=== PATIENT | female | born 1990 | race Caucasian/White ===

== ENCOUNTER 2022-07-03 06:07 | Emergency (ER) | payer BC, SELFPAY ==
--- NOTE | 2022-07-03 06:15 | XRR_ITS ---
PROCEDURE INFORMATION: Exam: XR Chest Exam date and time: 07/03/2022 7:18 AM Age: 39 years old Clinical indication: Cough and dyspnea; Additional info: Dyspnea/cough TECHNIQUE: Imaging protocol: Radiologic exam of the chest. Views: 1 view. COMPARISON: No relevant prior studies available. FINDINGS: Lungs: Unremarkable. No consolidation. Pleural spaces: Unremarkable. No pleural effusion. No pneumothorax. Heart/Mediastinum: Unremarkable. No cardiomegaly. Bones/joints: Unremarkable. XR/XR chest 1V portable [id number] IMPRESSION: No acute findings.
--- NOTE | 2022-07-03 06:15 | ECG_ITS ---
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 Measurements Intervals [place] Rate: 102 P: 76 [place]: 145 QRS: 68 QRSD: 86 T: 73 QT: 326 QTc: 426 Interpretive Statements SINUS TACHYCARDIA No previous ECG available for comparison Electronically Signed On 07-03-2022 16:29:52 CDT by Franck Adrian M.D. [id number]
--- NOTE | 2022-07-03 06:16 | ED_ITS ---
HPI - General Adult General: Chief complaint: Chest Pain Stated complaint: Heavy chest, SOB, N/V Time Seen by Provider: 07/03/22 06:11 Source: patient Mode of arrival: ambulatory History of Present Illness: 39-year-old female who presents emergency room complaining of chest and epigastric left upper quadrant pain with nausea began this morning. She has not noticed anything that exacerbates or relieves it she said she tried various positions with no improvement. She has had some nausea and vomiting and shortness of breath associated with that. No radiation to the neck or back. No hematemesis coffee-ground emesis no dysuria urgency or frequency. She has no history of any chronic respiratory problems no history of any DVT PE or coronary artery disease. Patient is not diabetic. Onset (ago): hour(s) Location: chest Severity: mild Quality: aching Pain Consistency: constant Relieving factors: none Exacerbating factors: none Associated symptoms: Reports chest pain and cough; Deny confusion, diaphoresis, decreased appetite, dyspnea, fevers/chills, headache(s), malaise, nausea, rash, palpitations, seizures, short of breath, syncope, vomiting or weakness Treatments prior to arrival: none Review of Systems Const: Denies: fever(s), chills, malaise or diaphoresis ENMT: Denies: throat pain, ear or mastoid pain, nasal discharge or nasal congestion Card: Reports: chest pain; Denies: palpitations or syncope Resp: Denies: dyspnea GI: Denies: nausea or vomiting : Denies: flank pain, difficulty voiding, dysuria, urinary frequency or urinary urgency Skin/Breast: Denies: rash Neuro: Denies: headache(s) or confusion PFS ED PFSH: Social History (Updated 07/03/22 @ 06:27 by Carlos Webb DO) Smoking and tobacco status: current every day smoker Physical Exam Const: GENERAL APPEARANCE: cooperative and comfortable O RIENTATION/CONSCIOUSNESS: Yes awake, Yes oriented to person, Yes oriented to place and Yes oriented to time HENMT: COMMON NORMALS: normocephalic, atraumatic and hearing grossly normal bilaterally HEAD & SCALP: normocephalic and atraumatic Resp: COMMON NORMALS: No retractions, No use of accessory muscles and clear to auscultation bilaterally EFFORT & INSPECTION: Yes tachypneic AUSCULTATION: clear to auscultation bilaterally Cardio: COMMON NORMALS: regular rate, regular rhythm and No murmurs present (Cardio) RATE: regular rate RHYTHM: regular rhythm GI: COMMON NORMALS: Soft to palpation and No hepatosplenomegaly present AUSCULTATION: Yes normoactive bowel sounds PALPATION: Yes Soft to palpation, No Tenderness to palpation present (GI), No Guarding due to palpation present (G I) and Yes No hepatosplenomegaly present Extremity: COMMON NORMALS: normal to inspection, capillary refill normal, no clubbing, cyanosis or edema, no calf tenderness and no pedal edema Neuro: SENSORIUM/ORIENTATION: Yes oriented to person, Yes oriented to place and Yes oriented to time Skin: COMMON NORMALS: no rashes or lesions noted GENERAL SKIN EXAM: no rashes or lesions noted Course Vital Signs: Vital signs: Vital Signs Temperature 98.3 F 07/03/22 06:20 Pulse Rate 79 07/03/22 09:08 Respiratory Rate 16 07/03/22 06:50 Blood Pressure 132/82 07/03/22 09:08 Pulse Oximetry 96 07/03/22 09:08 Oxygen Delivery Me thod Room Air 07/03/22 09:08 [facility] - General Adult Medical Decision Making Labs and imaging reviewed discussed with the patient. EKG shows no acute changes troponins negative. White count and liver functions are normal. On the CT there is a question of thickening of the gallbladder wall discussed Dr. Acevedo he recommended ultrasound. Ultrasound shows mild dilation of common bile duct a calculus gallbladder with some mild thickening. Dr. Acevedo felt patient had a calculus cholecystitis. There is no evidence of stones and while there is some bile duct dilation relatively minimal and laboratory studies are normal. After discussion we decided not to go forward with an MRCP. I discussed Dr. Preston as well he recommends starting on Augmentin 875 twice daily for 10 days also started on pantoprazole avoid foods that might irritate the gallbladder we will set her up for an outpatient HIDA scan and follow-up with general surgery. Medical Records I reviewed the patient's medical records. Lab Data I reviewed the patient's lab results. 07/03/22 06:15 07/03/22 06:15 Radiology Impressions Chest X-Ray 07/03/22 06:15 IMPRESSION: No acute findings. Abdomen/Pelvis CT 07/03/22 07:48 IMPRESSION: 1. Diffuse gallbladder wall thickening with edema. No visualized choledocholithiasis. This can be further evaluated with ultrasound. 2. Hepatomegaly. Otherwise normal noncontrast liver. 3. Normal appendix in the RIGHT lower quadrant. 4. Multifollicular ovaries bilaterally. 2.5 cm RIGHT ovarian cyst. Trace free fluid in the pelvis. 5. A few sigmoid diverticuli. 6. Small LEFT renal cyst. 7. No other acute findings Notified Carlos Webb DO at 07/03/2022 8:42 AM. Gallbladder Ultrasound 07/03/22 08:37 IMPRESSION: 1. Diffuse gallbladder wall thickening measuring 3.9 mm with a small amount of surrounding pericholecystic fluid and edema. No visualized cholelithiasis. Recommend correlation for the acalculus cholecystitis. 2. Mild dilatation common bile duct measuring 7.5 mm. This can be further evaluated with MRCP. 3. Mild hepatomegaly. 4. No hydronephrosis in RIGHT kidney. Laboratory Results WBC 17.2 10^3/uL (4.0-10.0) H 07/03/22 06:15 RBC 5.10 10^6/uL (4.1-5.3) 07/03/22 06:15 Hgb 14.2 g/dL (11.5-15.3) 07/03/22 06:15 Hct 43.5 % (37.0-47.0) 07/03/22 06:15 MCV 85.3 fl (81-99) 07/03/22 06:15 MCH 27.8 pg (28.0-34.0) L 07/03/22 06:15 MCHC 32.6 g/dL (30.0-36.0) 07/03/22 06:15 RDW 12.5 % (12.1-15.1) 07/03/22 06:15 Plt Count 498 10^3/cmm (130-400) H 07/03/22 06:15 MPV 9.3 fL (7.4-10.4) 07/03/22 06:15 Neut % (Auto) 61.0 % 07/03/22 06:15 Lymph % (Auto) 28.5 % 07/03/22 06:15 [place] % (Auto) 6.5 % 07/03/22 06:15 Eos % (Auto) 3.2 % 07/03/22 06:15 Baso % (Auto) 0.5 % 07/03/22 06:15 Neut # (Auto) 10.50 10^3/uL (1.8-7.7) H 07/03/22 06:15 Lymph # (Auto) 4.9 10^3/uL (0.8-4.8) H 07/03/22 06:15 [place] # (Auto) 1.1 10^3/uL (0.2-0.9) H 07/03/22 06:15 Eos # (Auto) 0.6 10^3/uL (0.0-0.8) 07/03/22 06:15 Baso # (Auto) 0.1 10^3/uL (0.0-0.1) 07/03/22 06:15 Nucleated RBC % (auto) 0 % 07/03/22 06:15 Nucleated RBCs # 0.0 /100WBC 07/03/22 06:15 Specimen Type Arterial 07/03/22 06:54 Sample Site Radial, right 07/03/22 06:54 ABG pH 7.45 (7.35-7.45) 07/03/22 06:54 ABG pCO2 30.7 mmHg (35-45) L 07/03/22 06:54 ABG pO2 102.0 mmHg (80.0-100.0) H 07/03/22 06:54 ABG HCO3 21.4 mmol/L (22-26) L 07/03/22 06:54 ABG O2 Saturation 99.3 07/03/22 06:54 ABG Base Excess -1.7 mmol/L (-2.0-2.0) 07/03/22 06:54 [place]ario Test Pos 07/03/22 06:54 A-a O2 Gradient 1.1 mmHg (5-10) L 07/03/22 06:54 Hematocrit 40.1 % (37-47) 07/03/22 06:54 Hgb O2 Saturation 97.0 % (95-100) 07/03/22 06:54 Carboxyhemoglobin 1.8 %THgb (0.4-20.1) 07/03/22 06:54 Methemoglobin 0.4 % (0.4-1.5) 07/03/22 06:54 Total Hemoglobin 13.1 g/dL (12-16) 07/03/22 06:54 Sodium 138.0 mmol/L (131-143) 07/03/22 06:54 Potassium 3.5 mmol/L (3.5-5.0) 07/03/22 06:54 Glucose 109.0 mg/dL (70-115) 07/03/22 06:54 Ionized Calcium 1.2 mmol/L (1.1-1.4) 07/03/22 06:54 O2 Delivery Device None 07/03/22 06:54 FiO2 21.0 % 07/03/22 06:54 Marketing Proposal Coordinator ID [place] 07/03/22 06:54 Sodium 137 mmol/L (136-145) 07/03/22 06:15 Potassium 4.2 mmol/L (3.5-5.1) 07/03/22 06:15 Chloride 101 mmol/L (98-107) 07/03/22 06:15 Carbon Dioxide 23 mmol/L (22-29) 07/03/22 06:15 Anion Gap 17.2 (5-19) 07/03/22 06:15 BUN 10 mg/dL (6-20) 07/03/22 06:15 Creatinine 0.7 mg/dL (0.5-0.9) 07/03/22 06:15 GFR Calculation 93.6 mL/min (90-130) 07/03/22 06:15 Glucose 99 mg/dL (65-115) 07/03/22 06:15 Calculated Osmolality 283 mOsm/kg (285-295) L 07/03/22 06:15 Calcium 9.2 mg/dL (8.5-10.5) 07/03/22 06:15 Total Bilirubin 0.5 mg/dL (0.15-1.2) 07/03/22 06:15 AST 30 U/L (0-32) 07/03/22 06:15 ALT 29 U/L (0-33) 07/03/22 06:15 Alkaline Phosphatase 102 U/L (35-105) 07/03/22 06:15 Troponin T Baseline 6 ng/L (0-10) 07/03/22 06:17 Troponin T 120 Minute 6.00 ng/L (0-10) 07/03/22 08:26 Delta Troponin T 0 ABS# (0-10) 07/03/22 08:26 Total Protein 7.6 g/dL (6.6-8.7) 07/03/22 06:15 Albumin 4.2 g/dL (3.5-5.2) 07/03/22 06:15 Globulin 3.4 g/dL (1.3-4.6) 07/03/22 06:15 Lipase 19 U/L (13-60) 07/03/22 06:17 Urine Color Yellow (Yellow) 07/03/22 07:20 Urine Appearance Clear (CLEAR) 07/03/22 07:20 Urine pH 5 (5-7) 07/03/22 07:20 Ur Specific [place] 1.020 (1.005-1.030) 07/03/22 07:20 Urine Protein Neg (Negative) 07/03/22 07:20 Urine Glucose (UA) Norm (Normal) 07/03/22 07:20 Urine Ketones Negative (Negative) 07/03/22 07:20 Urine Blood Neg (Negative) 07/03/22 07:20 Urine Nitrate Negative (Negative) 07/03/22 07:20 Urine Bilirubin Neg (Negative) 07/03/22 07:20 Urine Urobilinogen Norm mg/dL (Negative) 07/03/22 07:20 Ur Leukocyte Esterase Trace (Negative) H 07/03/22 07:20 Urine RBC None /hpf (0-2) 07/03/22 07:20 Urine WBC 5-10 /hpf (0-5) H 07/03/22 07:20 Ur Squamous Epith Cells Rare /hpf (0-5) 07/03/22 07:20 Amorphous Sediment Not Reportable 07/03/22 07:20 Urine Bacteria Trace /hpf (NONE) 07/03/22 07:20 Discharge Plan Discharge Patient Disposition: Home Clinical Impression: Acalculous cholecystitis Condition: Stable Prescriptions: New hydrocodone-acetaminophen 5-325 mg tablet 1 tab PO Q6H PRN (Reason: pain) Qty: 10 0RF ondansetron HCl 4 mg tablet 4 mg PO Q6H PRN (Reason: nausea and vomiting) Qty: 20 0RF amoxicillin-pot clavulanate 875-125 mg tablet 1 tab PO BID Qty: 20 0RF pantoprazole 40 mg tablet,delayed release (DR/EC) 40 mg PO BID 14 Days Qty: 28 0RF Discharge Orders: Discharge ED (Routine); Ordered 07/03/22 Ordered By: Carlos Webb Referrals: Gunner Gold MD [Primary Care Provider] - Discharge Diet: As Directed Discharge Activity: Increase activity as tolerated Patient Instructions: Opioid Safety, Pain Management Activity Restrictions/Additional Instructions: You were seen today for abdominal pain. You appear to have mild a calculus cholecystitis. We discussed case and reviewed the imaging with the general surgeon he recommends that we start you on Augmentin twice a day for 10 days. We will set up an outpatient HIDA scan and have you follow-up with a general surgeon in his office. If you have worsening of symptoms return. Avoid greasy foods fatty foods fried foods tomato-based products and citrus foods as those can irritate gallbladder problems. Additionally we started you on a medication for your stomach pantoprazole 40 mg twice daily. Coding Level of Care Code ED Escort Patients for Arlet Walker
[2022-07-03 06:20] VITALS: BP 136/93; PULSE 103; RESP 28; TEMP 36.8; O2SAT 100; BMI 34.4
[2022-07-03 06:29] LABS: Basophils # 0.1 10^3/uL (0.0-0.1); Basophils % 0.5 %; Eosinophils # 0.6 10^3/uL (0.0-0.8); Eosinophils % 3.2 %; Hematocrit 43.5 % (37.0-47.0); Hemoglobin 14.2 g/dL (11.5-15.3); Lymphocytes # 4.9 10^3/uL (0.8-4.8); Lymphocytes % 28.5 %; Mean Corpuscular HGB Conc 32.6 g/dL (30.0-36.0); Mean Corpuscular Hemoglobin 27.8 pg (28.0-34.0); Mean Corpuscular Volume 85.3 fl (81-99); Mean Platelet Volume 9.3 fL (7.4-10.4); Monocytes # 1.1 10^3/uL (0.2-0.9); Monocytes % 6.5 %; Nucleated Red Blood Cells % 0 %; Platelet Count 498 10^3/cmm (130-400); Red Cell Distribution Width 12.5 % (12.1-15.1); White Blood Count 17.2 10^3/uL (4.0-10.0)
[2022-07-03] MEDS: sodium chloride 0.9% 1,000 ML 999 ML IV (06:34)
[2022-07-03] MEDS: LORazepam 2 mg/mL INJ 1 mL IVP (06:39)
[2022-07-03] MEDS: ondansetron 2 mg/ML SDV 2 mL 4 MG IVP (06:39)
[2022-07-03 06:50] VITALS: BP 136/93; PULSE 94; RESP 16; O2SAT 100
[2022-07-03 06:58] LABS: Alanine Aminotransferase 29 U/L (0-33); Albumin Level 4.2 g/dL (3.5-5.2); Alkaline Phosphatase 102 U/L (35-105); Blood Urea Nitrogen 10 mg/dL (6-20); Calcium 9.2 mg/dL (8.5-10.5); Carbon Dioxide 23 mmol/L (22-29); Chloride 101 mmol/L (98-107); Globulin 3.4 g/dL (1.3-4.6); Glomerular Filtration Rate 93.6 mL/min (90-130); Glucose 99 mg/dL (65-115); Osmolality Calculated 283 mOsm/kg (285-295); Sodium 137 mmol/L (136-145); Total Bilirubin 0.5 mg/dL (0.15-1.2); Total Protein 7.6 g/dL (6.6-8.7)
[2022-07-03 06:59] LABS: Troponin(5th) Baseline 6 ng/L (0-10)
[2022-07-03 07:06] LABS: Anion Gap 17.2 (5-19); Aspartate Amino Transferase 30 U/L (0-32); Potassium 4.2 mmol/L (3.5-5.1)
[2022-07-03 07:06] LABS: ABG PCO2 30.7 mmHg (35-45); ABG PH Result 7.45 (7.35-7.45); Alveolar-Arterial Oxygen Gradi 1.1 mmHg (5-10); Arterial Blood Gas Hematocrit 40.1 % (37-47); Base Excess ABG -1.7 mmol/L (-2.0-2.0); Blood Gas Allen Test Pos; Blood Gas Operator Identificat WALCI; Blood Gas Sample Site Radial, right; Blood Gas Sample Type Arterial; Carboxyhemoglobin 1.8 %THgb (0.4-20.1); HCO3 ABG 21.4 mmol/L (22-26); Ionized Calcium Level - ABG 1.2 mmol/L (1.1-1.4); Methemoglobin 0.4 % (0.4-1.5); Oxygen Saturation ABG 99.3; Potassium Level - ABG 3.5 mmol/L (3.5-5.0); Total Hemoglobin 13.1 g/dL (12-16)
[2022-07-03 07:26] LABS: Lipase 19 U/L (13-60)
[2022-07-03 07:26] LABS: Slide Review Slide Review Perform
[2022-07-03 07:28] VITALS: BP 145/93; PULSE 89; O2SAT 97
--- NOTE | 2022-07-03 07:48 | CT_ITS ---
WS: [id number] CT ABDOMEN PELVIS TECHNIQUE: Noncontrast CT of the abdomen and pelvis with coronal and sagittal reformatted images. CLINICAL INFORMATION: Abdominal pain COMPARISON: None. DLP: 972.[address] scans at [facility] use at least one of these dose optimization techniques: automated e xposure control; mA and/or kV adjustment per patient size (includes targeted exams where dose is matc hed to clinical indication); or iterative reconstruction. FINDINGS: Lung bases are well aerated. Hepatomegaly. Otherwise normal noncontrast liver. Normal noncontrast spl een. Normal GE junction. Adrenal glands are normal. Small LEFT renal cyst. Noncontrast pancreas appea rs normal. Mild diffuse gallbladder wall thickening. This can be further evaluated with ultrasound. Adrenal Glands are normal. No hydronephrosis in either kidney. No obstructing renal or ureteral calcu li. A few sigmoid diverticuli. No evidence of acute diverticulitis. Mild sigmoid colon constipation. Norm al appendix in the RIGHT lower quadrant. Multifollicular ovaries bilaterally. RIGHT ovarian cyst measuring 2.5 cm. Trace fluid in the pelvis. Pelvic phleboliths. CT/CT abdomen pelvis wo con [id number] IMPRESSION: 1. Diffuse gallbladder wall thickening with edema. No visualized choledocholit hiasis. This can be further evaluated with ultrasound. 2. Hepatomegaly. Otherwise normal noncontrast liver. 3. Normal appendix in the RIGHT lower quadrant. 4. Multifollicular ovaries bilaterally. 2.5 cm RIGHT ovarian cyst. Trace free fluid in the pelvis. 5. A few sigmoid diverticuli. 6. Small LEFT renal cyst. 7. No other acute findings Notified Carlos Webb DO at 07/03/2022 8:42 AM.
[2022-07-03 08:01] LABS: Add Urine Culture? No; Add Urine Microscopic? YES; Bacteria Urine TRACE /hpf; Bilirubin Urine Neg (Negative); Blood Urine Neg (Negative); Glucose Urine UA Norm (Normal); Ketones Urine Negative (Negative); Leukocyte Esterase Urine Trace (Negative); Nitrate Urine Negative (Negative); Protein Urine Neg (Negative); Squamous Epithelial Cell Urine RARE /hpf (0-5); Urine Appearance Clear (CLEAR); Urine Color Yellow (Yellow); Urobilinogen Urine Norm (Negative); pH Urine 5 (5-7)
--- NOTE | 2022-07-03 08:37 | US_ITS ---
WS: [id number] ULTRASOUND ABDOMEN LIMITED CLINICAL INFORMATION: abd pain/ abnormal GB on CT COMPARISON: None. FINDINGS: Liver Size: Mild hepatomegaly. Craniocaudal length: 16.9 cm. Echogenicity: Normal. Surface nodularity: None. Mass (size and location): None. Bile ducts Intrahepatic ducts: Normal. Common bile duct diameter: 0.8 cm. Gallbladder Gallbladder wall thickening with edema Gallstones: None. Gallbladder sludge: None. Gallbladder wall thickening: Present Pericholecystic fluid: Present Sonographic Layne sign: Absent. Pancreas Normal as visualized. Right kidney: Normal. Hydronephrosis: None. Size: 10.4 cm x 5.5 cm x 4.7 cm. Abdominal aorta and IVC Visualized portions are normal. Ascites: None. US/US gall bladder [id number] IMPRESSION: 1. Diffuse gallbladder wall thickening measuring 3.9 mm with a small amount of surrounding pericholecystic fluid and edema. No visualized cholelithiasis. Rec ommend correlation for the acalculus cholecystitis. 2. Mild dilatation common bile duct measuring 7.5 mm. This can be further eval uated with MRCP. 3. Mild hepatomegaly. 4. No hydronephrosis in RIGHT kidney.
[2022-07-03] MEDS: morphine 4 mg/mL SDV 1 mL IVP (09:06)
[2022-07-03 09:08] VITALS: BP 132/82; PULSE 79; O2SAT 96
[2022-07-03 09:11] LABS: Troponin 5 2HR Delta 0 ABS# (0-10)
--- NOTE | 2022-07-03 09:22 | ECG_ITS ---
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 Measurements Intervals [place] Rate: 85 P: 38 [place]: 144 QRS: 42 QRSD: 85 T: 1 QT: 360 QTc: 429 Interpretive Statements SINUS RHYTHM WITH SINUS ARRHYTHMIA NONSPECIFIC T-WAVE ABNORMALITY Compared to ECG 07/03/2022 06:18:57 T-wave abnormality now present Sinus tachycardia no longer present Electronically Signed On 07-03-2022 16:35:46 CDT by Franck Adrian M.D. [id number]
--- NOTE | 2022-07-03 14:19 | PC.SOCIAL ---
Addendum entered by Corrie Andrade 07/19/22 10:24: client solutions manager received the following message from centralized scheduling regarding follow up: Dr. Webb put in an order for a NM Hepa for patient Ira Mcwilliams end of last month. This is a self-pay patient and Anders the self-pay counselor hasn?t been able to contact the patient. The order will be inactivated. Aurora Fraire Candy Spreader Helper Centralized Scheduling Addendum entered by Corrie Andrade 07/18/22 10:46: client solutions manager received the following message from the general surgery clinic regarding follow up appointment: Contact with patient has been unsuccessful 07/18 Original Note: Orders for HIDA scan faxed to centralized scheduling. Message to Dr. Sosa office for follow-up appointment.
== END 2022-07-03 10:21 | disposition home or self-care (01) ==
PROVIDERS: Emergency Provider Family Medicine; PCP Family Medicine
DX: K81.9 Cholecystitis, unspecified (principal); F17.210 Nicotine dependence, cigarettes, uncomplicated
CPT/HCPCS: 36600; 71045; 74176; 76705; 80051; 80053; 81001; 82330; 82805; 83690; 84484; 85025; 93005; 96361; 96374; 96375; 99285; J2060; J2270; J2405; J7030

== ENCOUNTER 2024-08-30 12:22 | Emergency (ER) | payer BC, MEDICAID, SELFPAY ==
--- OUTSIDE RECORDS SUMMARY | 2021-07-21 05:56 | XMS_ITS | Continuity of Care Document ---
Author Organization [facility] Address [id number] [address] Phone Care Team Providers Care Director [employer] Name Role Phone Trent Pretty DDS Unavailable Unavailabl e Advance Directives Directive Yes / No Effective Date File Name No Information Encounters Encounter Description Practice Location Reason(s) For Visit Diagnoses Date Provider Providers Copied on Encounter [facility], [id number], [id number], [place] tel:[phone] [facility] No Information Maria De Jesus Newman. [address] [place] [address], [address], [place]. tel:[phone] Family History Family Member Type Diagnosis Age At Onset No Information Payers Payer name Insurance type Covered alliance party ID Authoriza tion(s) No Information Social History Type Description Quantity Date Captured Comments Sex Female Smoking Status No Information Chief Complaint And Reason For Visit No Information Reason For Referral Reason For Referral No Information History Of Present Illness Encounter Date Complaint History Of Prese nt Illness No Information Functional Status Date Functional Assessmen t No Information Instructions Date Instruction Additional Infor mation No Information Assessments Type Assessment Date No Information Patient Care Teams Name Effective Dates (start - stop) Status Members No Information
--- OUTSIDE RECORDS SUMMARY | 2024-08-30 12:29 | XMS_ITS | Continuity of Care Document ---
Author Organization [facility] Manny Gamez, [facility] ([facility]) Address [address] [place] [address] Care Team Providers Care Lokie Engineer Name Role Phone KAREEM GOLD Primary Care Provider Assessment No assessment recorded. Plan of Treatment Reminders Order Date Submit Date Provider Last Modified By Organization Details Last Modified Time Details Appointments RECHECK 10 2024 08:50A M Kareem Gold MD Not available Not available Not available Lab None recorded. Referral None recorded. Procedures None recorded. Surgeries None recorded. Imaging None recorded. Medication Orders hydrocort isone 2.5 % topical cream with perineal applicato r 2024 025 [facility], [address], [place], [address], 08/28/2024 14:19:29 Patient TargetsNo targets recorded. Patient InstructionsNo instructions recorded. Reason for Referral None Reported. Problems Name Problem SNOMED Code Status Onset Date Resolution Date Notes Provider Name and Address Organization Details Recorded Time Thyroid nodule 364894793 [facility] 2023 [facility] Anterior cervical lymphadenop athy 077571472 Completed 202307/17/2024 [facility] Smoker 43528364 Active 2023 [facility] Problem Notes None recorded. Procedures Surgical History Date Name Laterality Status Provider Name and Address Organization Details Recorded Time procedure on foot completed Norma Jaurez [facility], Manny 05/17/2023 11:18:35 Appendectomy completed KYAWWILLARD [facility] 04/07/2024 13:02:53 Imaging Results None recorded. Procedure Notes None recorded. Medical Equipment None Reported. Allergies No known drug allergies Medications Name Sig Start Date Stop Date Status Note LastModified by Organization Details LastModified Time Miralax 17 gram/dose oral powder Take 17 g every day by oral route. 10/31 completed Not Available Not Available Not Available Colace 100 mg capsule Take 1 capsule every day by oral route. 10/31 completed Not Available Not Available Not Available hydrocodo ne 5 mg-acetam inophen 325 mg tablet TAKE 1 TABLET BY MOUTH EVERY 6 HOURS NEEDED FOR PAIN 11/10 completed Not Available Not Available Not Available ondansetr on HCl 4 mg tablet TAKE 1 TABLET BY MOUTH EVERY 6 HOURS NEEDED FOR NAUSEA AND VOMITING 11/10 completed Not Available Not Available Not Available ketorolac 30 mg/mL (1 mL) injection solution Inject 1 mL every 6 hours by intramus cular route for 1 day. 05/16 completed Not Available Not Available Not Available hydrocort isone 2.5 % topical cream with perineal applicato r APPLY A THIN LAYER TO THE AFFECTED AREA(S) BY TOPICAL ROUTE 2-4 TIMESDAI LY 2024 active Not Available Not Available Not Avai lable pantopraz ole 40 mg tablet,de layed release TAKE 1 TABLET BY MOUTH TWICE DAILY 11/10 completed Not Available Not Available Not Available amoxicill in 250 mg capsule TAKE 2 CAPSULES BY MOUTH THREE TIMES DAILY FOR 7 DAYS 10/31 completed Not Available Not Available Not Available ondansetr on 4 mg disintegr ating tablet Place 1 tablet 3 times a day by translin gual route as needed for 10 days. 05/16 completed Not Available Not Available Not Available amoxicill in 875 mg-potass ium clavulana te 125 mg tablet TAKE 1 TABLET BY MOUTH TWICE DAILY 10/31 completed Not Available Not Available Not Available oxycodone 5 mg tablet TAKE 1 TABLET BY MOUTH EVERY 6 HOURS NEEDED FOR PAIN 10/31 completed Not Available Not Available Not Available escitalop rosa 10 mg tablet Take 1 tablet every day by oral route for 30 days. 2024 active Not Available Not Available Not Avai lable meloxicam QD 11/10 completed Recorded 10/22/19 22 3:16PM by Kareem Gold MD, Office Visit; Refill Quantity : 30; Tablet; Not Available Not Available Not Available oxycodone 10/31 completed Not Available Not Available Not Available varenicli ne tartrate 1 mg tablet TAKE 1 TABLET BY MOUTH TWICE DAILY AFTER USING STARTER PACK 07/17 completed Not Available Not Available Not Available Chantix Starting Month Box 0.5 mg (11)-1 mg (42) tablets in dose pack Take 1 startr pk every day by oral route. 07/17 completed Not Available Not Available Not Available Nurtec ODT 75 mg disintegr ating tablet Take 1 tablet every 72 hours by oral route for 3 days. 05/16 completed Not Available Not Available Not Available Voltaren Arthritis Pain 1 % topical gel APPLY 2 GRAMS TO THE AFFECTED AREA(S) BY TOPICAL ROUTE 4 TIMES PER DAY 05/16 completed Not Available Not Available Not Available Vitals Date Recorded Body height Body mass index (BMI) Body weight Oxygen saturation Oxygen saturation in Arterial blood by Pulse oximetry Heart rate Respiratory rate Body temperature Systolic And Diastolic Provider Name and Address Organization Details Last Updated DateTime 5 167.64 cm 42 kg/m2 367678. 02 g 98 % 98 % 86 /min 16 /min 98.6 [degF] 130/70 mm[Hg] Taniya Nicole [facility] 5 13:11:18 Social History Question Answer Notes LastModified by Organizat ion Details LastModified Time Tobacco Smoking Status Former Smoker MOLLY tran, [facility], L.LRolandaCRolanda 04/07/2024 13:02:34 When Did You Quit Smoking? 1-5yearssinc elastcigaret te 03/2024 [email or web address] Information not available 04/07/2024 What Was The Date Of Your Most Recent Tobacco Screening? 08/28/2024 [email or web address] Information not available 08/28/2024 What Is Your Relationship Status? Information not available 05/17/2023 Sex: Unknown Functional Status Question Answer Note LastModified by Organizat ion Details LastModified Time Do you use any illicit or recreational drugs? No Information not available 05/17/2023 What is your level of alcohol consumption? None Information not available 05/17/2023 Are you currently employed? No Information not available 05/17/2023 Are you able to care for yourself? Yes Information not available 05/17/2023 Mental Status None recorded. Family History Nothing Reported. Medical History No medical history recorded. Gynecological HistoryNo gynecological history recorded. Obstetrics History GPAL:G 0 P 0 0 0 0 Immunizations Vaccine Type Date Status Note Provider Nam e and Address Organization Details Recorded Time MMR 5 completed MOLLY tran [facility], L[facility]LR[facility]andaCRolanda 06/14/2023 13:15:55 MMR 7 completed MOLLY tran [facility], L.LRolandaCR[facility]anda 06/14/2023 13:15:55 polio, unspecified formulation 5 completed TREBA NEUSIRISHANDSUSAN tran [facility], L.LRolandaCRolanda 06/14/2023 13:15:55 polio, unspecified formulation 7 completed MOLLY tran [facility], L.L.CR[facility]anda 06/14/2023 13:15:55 DTP-Hib 5 completed MOLLY tran [facility], L.LRolandaCRolanda 06/14/2023 13:15:55 HPV, quadrivalent 3 completed MOLLY tran, [facility], LRolandaLColt 06/14/2023 13:15:55 Tdap 2 completed [facility] 02:33:30 Past Encounters Encounter ID Performer Location Encounter Start Date Encounter Closed Date Diagnosis/Indication Diagnosis SNOMED-CT Code Diagnosis ICD10 Code Diagnosis Note [id number] IRINA HARRIS [facility] ([facility]) [address] [place] [address] 08/28/2024 13:03:56 08/28/2024 14:22:22 Painless rectal bleeding 592251375 K62.5 Will treat for possible internal hemorrhoid s. Patient states that she has labs to be done today which includes a CBC. Will have patient keep follow up appt with Dr Gold to discuss medication s including lexapro and lab results. RTC with any new or worsening symptoms. Health Concerns Section Related Observation LastModified by Organization Detai ls LastModified Time None Recorded Concern Status LastModified by Organization Details LastModified Time None Recorded Payers Encounter Date Sequence Insurance Name Policy Number Policy Blanco Covered Member ID Blanco Member ID Guarantor Name 08/28/2024 1 [employer] [place] - [place]MO) [id number] Ira Mcwilliams [id number] Ira Mcwilliams Notes Date Note Type Note Provider Name and Address Organization Details Recorded Time 08/28/2024 text/html walk in patient is here today for blood in her stool that started 2 days ago without pain. Patient is not sure if it is from her medication. Denies any history of hemorrhoids. Denies any abd pain or other times of bleeding. Patient states that the lexapro that was recently started is also giving her issues with sexual enjoyment and would like to stop this. IRINA HARRIS [address] [place], [address], [facility], Manny 08/28/2024 17:22:48 OBGyn Episode No OBEpisode recorded.
--- OUTSIDE RECORDS SUMMARY | 2024-08-30 12:29 | XMS_ITS | Data Portability ---
Author Organization [facility], [facility] Address [address] [address] Care Team Providers Care Ophthalmologist Name Role Phone KAREEM BLACKWELL Primary Care Provider Assessment Encounter Date Assessment Date Assessment LastModified by Organization Details LastModified Time 03/11/2024 03/11/2024 3 view xray- no fx, joint effusion present- independently viewed by nh [email or web address] Not available 03/12/2024 13:32:35 04/07/2024 04/07/2024 I have encouraged her to gradually increase activity of her knee. We will see how her knee does over time. Will consider orthopedic referral as needed. Her insurance would not cover physical therapy, so that is not an option. [email or web address] Not available 04/30/2024 07:57:49 Plan of Treatment Reminders Order Date Submit Date Provider Last Modified By Organization Details Last Modified Time Details Appointments RECHEC K 10 2024 08:50A M Kareem Blackwell MD Not available Not available Not available Lab thyrot ropin, QN, serum or plasma 2024 025 [email or web address] [facility], [address], [address], [place], [address], 08/05/2024 18:43:32 CBC 2024 025 [email or web address] [facility], [address], [address], [place], [address], 08/05/2024 18:43:44 CMP, serum or plasma [address] [facility], [address], [facility] 1, [place], [address], 08/05/2024 18:44:06 Referral mental health counse griffin referr al 2024 025 Not available 08/08/2024 17:30:26 physic al therap ist referr al 2024 025 [facility], [address], [place], [address], 04/07/2024 10:04:29 Procedures None record ed. Surgeries None record ed. Imaging XR, knee, 3 view [address] (Scheduling Orders), [address], [place], [address], 03/14/2024 06:41:04 Medication Orders hydroc ortiso ne 2.5 % topica l cream with perine al applic ator 2024 025 [facility], [address], [place], [address], 08/28/2024 14:19:29 escita lopram 10 mg tablet 2024 025 [facility], [address], [place], [address], 07/17/2024 10:08:17 Chanti x Starti ng Month Box 0.5 mg (11)-1 mg (42) tablet s in dose pack 2024 025 [facility], [address], [place], [address], 07/17/2024 10:44:59 Chanti x Starti ng Month Box 0.5 mg (11)-1 mg (42) tablet s in dose pack 2023 024 [facility] [address], [place], [address], 07/17/2024 09:41:38 Patient TargetsNo targets recorded. Patient InstructionsNo instructions recorded. Reason for Referral Physical Therapist Referral for Pain of left knee joint Referring Physician: Ashley Seay, Family Medicine, Encounter Date: 03/11/2024 Mental Health Counselor Refe rral for Mixed anxiety and depressive disorder Referring Physician: Kareem Blackwell, Family Medicine, Encounter Date: 07/17/2024 Results Created Date Observation Date Name Description Value Unit Range Abnormal Flag Note LastModifiedBy Organization Detail LastModifiedTime 08/29/1908/28/2024 CBC WBC 11.1 x10 4.0-10 .5 high Not Available [facility] [address] [facility] 1, [place], [address], 08/28/2024 14:22:14 08/29/19 25 08/28/2024 CBC RBC 4.44 x10 3.50-5 .50 Not Available [facility] [address] [facility] 1, [place], [address], 08/28/2024 14:22:14 08/29/19 25 08/28/2024 CBC HGB 12.7 g/dL 12.0-1 6.0 Not Available [facility] [address] [facility] 1, [place], [address], 08/28/2024 14:22:14 08/29/19 25 08/28/2024 CBC HCT 38.6 % 37.0-4 7.0 Not Available [facility] [address] [facility] 1, [place], [address], 08/28/2024 14:22:14 08/29/19 25 08/28/2024 CBC MCV 87.0 fL 80.0-9 9.9 Not Available [facility] [address] [facility] 1, [place], [address], 08/28/2024 14:22:14 08/29/19 25 08/28/2024 CBC MCH 28.6 pg 27.0-3 2.0 Not Available [facility] [address] [facility] 1, [place], [address], 08/28/2024 14:22:14 08/29/19 25 08/28/2024 CBC MCHC 32.8 g/dL 32.0-3 6.0 Not Available [facility] [address] [facility] 1, [place], [address], 08/28/2024 14:22:14 08/29/19 25 08/28/2024 CBC RDW 14.0 % 11.5-1 4.5 Not Available [facility] [address] [facility] 1, [place], [address], 08/28/2024 14:22:14 08/29/1908/28/2024 CBC plt 343.3 x10 140.0- 451.0 Not Available [facility] [address] [facility] 1, [place], [address], 08/28/2024 14:22:14 08/29/19 25 08/28/2024 CBC lymphocytes % 35.5 % 20.0-5 0.0 Not Available [facility] [address] [facility] 1, [place], [address], 08/28/2024 14:22:14 08/29/19 25 08/28/2024 CBC granulcytes % 55.4 % 30.0-7 0.0 Not Available [facility] [address] [facility] 1, [place], [address], 08/28/2024 14:22:14 08/29/19 25 08/28/2024 CBC monocytes % 4.1 % 2.0-16 .0 Not Available [facility] [address] [facility] 1, [place], [address], 08/28/2024 14:22:14 08/29/19 25 08/28/2024 CBC granulcytes# 6.2 x10 Not Jyothi ilable [facility] [address] [facility] 1, [place], [address], 08/28/2024 14:22:14 08/29/19 25 08/28/2024 CBC lymphocytes # 3.9 x10 Not Available [facility] [address] [facility] 1, [place], [address], 08/28/2024 14:22:14 08/29/19 25 08/28/2024 CBC monocytes # 0.5 x10 Not Avai lable [facility] [address] [facility] 1, [place], [address], 08/28/2024 14:22:14 08/29/19 25 08/28/2024 TSH TSH 2.10 uIU/m L 0.49-3 .82 Not Available [facility] [address] [facility] 1, [place], [address], 08/28/2024 15:22:29 08/29/19 25 08/28/2024 CMP (FEMA LE) glucose 117.0 mg/dL 60.0-9 9.0 high Not Available [facility] [address] [facility] 1, [place], [address], 08/28/2024 15:47:48 08/29/19 25 08/28/2024 CMP (FEMA LE) BUN (blood urea nitrogen) 14.0 mg/dL 10.0-2 6.0 Not Available [facility] [address] [facility] 1, [place], [address], 08/28/2024 15:47:48 08/29/19 25 08/28/2024 CMP (FEMA LE) creatinine (serum) 0.6 mg/dL 0.4-1. 5 Not Available [facility] [address] [facility] 1, [place], [address], 08/28/2024 15:47:48 08/29/19 25 08/28/2024 CMP (FEMA LE) BUN/creatini ne ratio 23.33 ratio Not Available [facility] [address] [facility], [place], [address], 08/28/2024 15:47:48 08/29/19 25 08/28/2024 CMP (FEMA LE) eGFR calculated 122.4 Not Available [facility] [address] [facility], [place], [address], 08/28/2024 15:47:48 08/29/19 25 08/28/2024 CMP (FEMA LE) total protein 7.3 g/dL 6.0-8. 5 Not Available [facility] [address] [facility] 1, [place], [address], 08/28/2024 15:47:48 08/29/19 25 08/28/2024 CMP (FEMA LE) total bilirubin 0.4 mg/dL 0.2-1. 3 Not Available [facility] [address] [facility] 1, [place], [address], 08/28/2024 15:47:48 08/29/19 25 08/28/2024 CMP (FEMA LE) albumin 4.2 g/dL 3.5-5. 5 Not Available [facility] [address] [facility] 1, [place], [address], 08/28/2024 15:47:48 08/29/19 25 08/28/2024 CMP (FEMA LE) globulin 3.1 calc Not Available [facility] [address] [facility] 1, [place], [address], 08/28/2024 15:47:48 08/29/19 25 08/28/2024 CMP (FEMA LE) AST (SGOT) 41.0 U/L 0.0-46 .0 Not Available [facility] [address] [place] [facility], [place], [address], 08/28/2024 15:47:48 08/29/19 25 08/28/2024 CMP (FEMA LE) altv (SGPT) 37.0 U/L 13.0-6 9.0 normal Not Available [facility] [address] [place] [facility], [place], [address], 08/28/2024 15:47:48 08/29/19 25 08/28/2024 CMP (FEMA LE) A/G ratio 1.4 ratio Not Available [facility] [address] [facility] 1, [place], [address], 08/28/2024 15:47:48 08/29/19 25 08/28/2024 CMP (FEMA LE) ALP phos 75.0 U/L 30.0-1 40.0 normal Not Available [facility] [address] [place] [facility], [place], [address], 08/28/2024 15:47:48 08/29/19 25 08/28/2024 CMP (FEMA LE) calcium 9.2 mg/dL 8.4-10 .5 Not Available [facility] [address] [facility] 1, [place], [address], 08/28/2024 15:47:48 08/29/19 25 08/28/2024 CMP (FEMA LE) sodium 138.0 mmol/ L 136.0- 145.0 Not Available [facility] [address], [place], [address], 08/28/2024 15:47:48 08/29/19 25 08/28/2024 CMP (FEMA LE) potassium 4.2 mmol/ L 3.5-5. 1 Not Available [facility] [address] [facility] 1, [place], [address], 08/28/2024 15:47:48 08/29/19 25 08/28/2024 CMP (FEMA LE) chloride 103.0 mmol/ L 98.0-1 10.0 normal Not Available [facility] [address] [facility] 1, [place], [address], 08/28/2024 15:47:48 08/29/19 25 08/28/2024 CMP (FEMA LE) C02 29.0 mmol/ L 22.0-3 1.0 Not Available [facility] [address] [facility] 1, [place], [address], 08/28/2024 15:47:48 08/29/19 25 08/28/2024 CMP (FEMA LE) anion gap 6.0 calc Not Available [facility] [address] [facility] 1, [place], [address], 08/28/2024 15:47:48 08/29/19 25 08/28/2024 CMP (FEMA LE) osmolality 286.5 calc Not Available [facility] [address] [facility] [address] 1, [place], [address], 08/28/2024 15:47:48 03/11/19 25 03/11/2024 XR, knee, 3 view No observ ation record ed. [email or web address] [facility] [address] [facility] [address], [place], [address], 03/12/2024 07:33:31 Result Notes None recorded. Problems Name Problem SNOMED Code Status Onset Date Resolution Date Notes Provider Name and Address Organization Details Recorded Time Thyroid nodule 405558956 Active 2023 MOLLY Marks [facility], Manny 09:30:01 Anterior cervical lymphadenop athy 156136576 Completed 202307/17/2024 MOLLY LINDER [facility], Manny 09:29:51 Smoker 49826751 Active 2023 MOLLY LINDER [facility], [place]anny 09:29:56 Problem Notes None recorded. Procedures Surgical History Date Name Laterality Status Provider Name and Address Organization Details Recorded Time procedure on foot completed Norma Juarez [facility], [place]anny 05/17/2023 11:18:35 Appendectomy completed MOLLY ZAVALETA [facility], LRolandaLColt 04/07/2024 13:02:53 Imaging Results None recorded. Procedure [...] completed Recorded 10/22/19 22 3:16PM by Kareem Blackwell MD, Office Visit; Refill Quantity : 30; [...] Details Last Updated DateTime 5 167.64 cm 41.2 kg/m2 871526. 05 g 99 % 99 % 86 /min 16 /min 98.2 [degF] 134/80 mm[Hg] Taniya Nicole [facility], LRolandaLColt 5 12:00:57 Date Recorded Body height Body mass index (BMI) Body weight Oxygen saturation Oxygen saturation in Arterial blood by Pulse oximetry Heart rate Respiratory rate Body temperature Systolic And Diastolic Provider Name and Address Organization Details Last Updated DateTime 5 167.64 cm 42 kg/m2 056897. 12 g 97 % 97 % 97 /min 20 /min 97.9 [degF] 136/80 mm[Hg] MOLLY MARTINEZ [facility], LRolandaLColt 5 13:12:42 Date Recorded Body height Body mass index (BMI) Body weight Oxygen saturation Oxygen saturation in Arterial blood by Pulse oximetry Heart rate Respiratory rate Body temperature Systolic And Diastolic Provider Name and Address Organization Details Last Updated DateTime 5 167.64 cm 41 kg/m2 841962. 16 g 99 % 99 % 76 /min 18 /min 97.6 [degF] 128/76 mm[Hg] MOLLY MARTINEZ [facility] LRolandaLColt 5 09:50:17 Date Recorded Body height Body mass index (BMI) Body weight Oxygen saturation Oxygen saturation in Arterial blood by Pulse oximetry Heart rate Respiratory rate Body temperature Systolic And Diastolic Provider Name and Address Organization Details Last Updated DateTime 5 167.64 cm 42 kg/m2 027223. 02 g 98 % 98 % 86 /min 16 /min 98.6 [degF] 130/70 mm[Hg] Taniya Nicole [facility] LRolandaLColt 5 13:11:18 Date Recorded Body height Body mass index (BMI) Body weight Oxygen saturation Oxygen saturation in Arterial blood by Pulse oximetry Heart rate Systolic And Diastolic Provider Name and Address Organization Details Last Updated DateTime 4 167.64 cm 39.8 kg/m2 280534. 52 g 99 % 99 % 80 /min 124/72 mm[Hg] MOLLY LINDER [facility], L.L.CRolanda 4 09:54:59 Social History Question Answer Notes LastModified by Organizat ion Details LastModified Time Tobacco Smoking Status Former Smoker MOLLY tran [facility], L.L.CRolanda 04/07/2024 13:02:34 When Did You Quit Smoking? 1-5yearssinc elastcigaret te 03/2024 [email or web address] Information not available 04/07/2024 What Was The Date Of Your Most Recent Tobacco Screening? 08/28/2024 [email or web address] Information not available 08/28/2024 What Is Your Relationship Status? Information not available 05/17/2023 Sex: Unknown Functional Status Question Answer Note LastModified by Whereizat ion Details LastModified Time Do you use [...] Organization Details Recorded Time MMR 5 completed OMLLY tran [facility], L.L.CRolanda 06/14/2023 13:15:55 MMR 7 completed MOLLY tran [facility], L.L.CRolanda 06/14/2023 13:15:55 polio, unspecified formulation 5 completed MOLLY tran [facility], L.FaustoC. 06/14/2023 13:15:55 polio, unspecified formulation 7 completed TREBA BINHWANDER marc, [facility], LRolandaLRolandaC. 06/14/2023 13:15:55 DTP-Hib 5 completed TREBA BINHWANDER marc, [facility], RenatoC. 06/14/2023 13:15:55 HPV, quadrivalent 3 completed TREBA BINHWANDER marc, [facility], LRolandaLRolandaC. 06/14/2023 13:15:55 Tdap 2 completed Not Available [facility] 09/09/2022 02:33:30 Past Encounters Encounter ID Performer Location Encounter Start Date Encounter Closed Date Diagnosis/Indication Diagnosis SNOMED-CT Code Diagnosis ICD10 Code Diagnosis Note [id number] VIOLETTE MAIER [facility] ([facility]) [address] [place] [phone] 11/10/2022 09:54:57 11/10/2022 12:47:29 Pain in right foot 0645936249 51291 M79.671 Start voltaren gel four times daily as needed. Encouraged to roll frozen water bottle twice daily on foot. If not improving in 1-2 weeks, will consider referral to podiatry or x-ray. Patient agrees to plan of care. [id number] VIOLETTE MAIER [facility] ([facility]) [address] [place] [phone] 01/05/2023 16:13:23 01/05/2023 17:02:37 Migraine 16525927 G43.909 Ketorolac IM given in clinic today. Patients drove her. Patient was given Nurtec to start tomorrow if no improvemen t. Can start ondansetro n PRN tonight for vomiting and nausea. Discussed with patient that if pain becomes worse or any visual changes occurs, she needs to go to ED. Patient verbalizes understand ing. [id number] Mick Keys MD [facility] ([facility]) [address] [place] [id number] 05/17/2023 11:11:36 05/17/2023 11:47:29 Thyroid nodule 300474876 E04.1 Possible thyroid nodule noted. Given some of her symptoms I would recommend we check thyroid function today. Will obtain ultrasound for further evaluation of the nodule of concern. Anterior c ervical lymphadenopathy 305430763 R59.0 Supple lymphadeno bailee noted. Given night sweats we will go ahead and do evaluation with labs. Recommend follow-up with PCP [id number] Mick Keys MD [facility] ([facility]) [address] [place] [id number] 05/23/2023 11:03:21 05/24/2023 12:05:30 [id number] Kareem Blackwell MD [facility] ([facility]) [address] [place] [address] [id number] 06/14/2023 12:56:16 06/14/2023 14:12:55 Thyroid nodule 451014203 E04.1 Pain of le ft hip joint 5597898037 17532 M25.552 Oropharyng eal dysphagia 60861040 R13.12 [id number] Kareem Blackwell MD [facility] ([facility]) [address] [place] [id number] 06/27/2023 11:55:05 06/27/2023 14:08:36 Abdominal pain 47054596 R10.9 Postoperative visit 1836 32501 Z48.89 [id number] Kareem Blackwell MD [facility] ([facility]) [address] [place] [address] [id number] 11/01/2023 09:40:51 11/01/2023 10:31:26 Smoker 93961041 F17.590 [id number] IRINA SEQUEIRA [facility] ([facility]) [address] [place] [id number] 03/11/2024 11:23:39 03/14/2024 06:41:03 Pain of left knee joint 5844285047 23760 M25.562 Effusion o f joint of left knee 3241307371 61332 M25.462 Discussed otc knee support/br stephy for pt to purchase and start wearing daily.Ice pack applicatio n for 10 minutes every 2 hours while awake.Ibup rofen 400mg PO BID with food for next 1 week.Injur y occurred 2 months ago, xray completed today, will send referral for PT.Pt will f/u with her PCP for evaluation of her response to PT in 1 month. [id number] Kareem Blackwell MD [facility] ([facility]) [address] [place] [address] [phone] 04/07/2024 12:48:29 04/07/2024 16:26:38 Pain of left knee joint 3667375398 09737 M25.562 Smoker 07920974 F17.618 [id number] Kareem Blackwell MD [facility] ([facility]) [address] [place] [id number] 5 07/17/2024 09:15:16 07/17/2024 10:37:15 Thyroid nodule 846763791 E04.1 Malaise and fatigue 2717 80663 R53.81 R53.83 Mixed anxi ety and depressive disorder 926155563 F41.9 F32.A [id number] IRINA HARRIS [facility] ([facility]) [address] [place] [address] [id number] 08/28/2024 13:03:56 08/28/2024 14:22:22 Painless rectal bleeding 648183883 K62.5 Will treat for possible internal hemorrhoid s. Patient states that she has labs to be done today which includes a CBC. Will have patient keep follow up appt with Dr Blackwell to discuss medication s including lexapro and lab results. RTC with any new or worsening symptoms. Health Concerns Section Related Observation LastModified by Organization Detai ls LastModified Time None Recorded Concern Status LastModified by Organization Details LastModified Time None Recorded Advance Directives Directive None Recorded Payers Insurance Date Sequence Insurance Name Policy Number Policy Blanco Covered Member ID Blanco Member ID Guarantor Name 08/28/2024 [place] [facility] (INSTITUTIONAL ) [id number] Ira Horton [id number] Ira Mcwilliams 08/28/2024 1 [employer] [place] - [place]) [id number] Ira Mcwilliams [id number] Ira Mcwilliams Notes Date Note Type Note Provider Name and Address Organization Details Recorded Time 11/01/2023 text/html Pt would like to get something to help her stop smoking, she has tried on her own but gets very irritated and is hateful to others around her. Kareem Blackwell MD [address] [place] [address], [phone], [facility] 11/01/2023 10:30:40 03/11/2024 text/html walk in patientpatient is here today for left knee pain and swelling that started 2 months ago.pt was standing and twisted to grab something on her right side. Afterwards she noticed swelling to the left knee and cannot cross her legs with the left leg. has been alternating ice/heat. IRINA SEQUEIRA [address] [place] [address], [phone], [facility] 03/12/2024 13:33:57 04/07/2024 text/html Follow up from w alk in-Pt went to [place] on 03[place], for knee pain, she had turned and her left knee popped and twisted. Pt had X rays and a PT referral. Pt states her insurance did not cover PT so she looked up exercises for knee injuries and has been doing then at home. Pt states her knee is feeling a little better. She states she feels like her left knee and leg is weaker and she has edema in her left leg. If she is not wearing her knee brace her knee feels like its going to give out. Pt states she feels super stiff when she gets up in the AM Kareem Blackwell MD [address] [place] [address], [phone], [facility] 04/30/2024 07:57:56 07/17/2024 text/html Pt states she is tired all, she just feels like something is wrong, Pt states her eyes are swollen and watery. Pt is thirsty all the time. Pt states she has been getting black lines on her finger nails that come and go.Pts Insurance would not cover PT, her knees are swollen the left knee is worse. Pts feet have a burning sensations the right foot is worse.Pt would like to have another baby but she keeps gaining weight, the only thing she craves is sweets and when she was her teeth hurt, pt states when she has a period her teeth hurt also..Pt is having more anxiety and depression and would like to talk about getting on something, she feels paranoid all the time, she has a bunch of what if, she will not even take the trash out if it is dark because she has a lot of what ifs. Kareem Blackwell MD [address] [place] [address], [phone], [facility] 07/17/2024 10:13:29 08/28/2024 text/html walk in patient is here [...] would like to stop this. IRINA HARRIS [address] [place] [address], [phone], [facility] 08/28/2024 17:22:48 OBGyn Episode No OBEpisode recorded.
[2024-08-30 12:31] VITALS: BP 160/83; PULSE 93; RESP 14; TEMP 36.5; O2SAT 99; BMI 40.7
--- NOTE | 2024-08-30 13:32 | ED_ITS ---
HPI - GI Bleed 2 General: Chief complaint: GI Bleed Stated complaint: gi bleed Time Seen by Provider: 08/30/24 13:04 History of Present Illness: 34-year-old female presents emergency ro om complaining of painless rectal bleeding. She only has slight bleeding with bowel movements. She has not had any obstruction no abdominal pain bloating. No recent rectal trauma no previous surgeries. She has been evaluated in the past for colitis but does not have any cramping or mucousy stools. No recent antibiotics. Associated symptoms: Denies abdominal pain, chills, fever(s), nausea, rash or vomiting Related Data Home Medications ?Medication ?Instructions ?Recorded ?Confirmed buprenorphine HCl 2 mg sublingual 4 mg sublingual REMEDIOS Y 08/30/24 08/30/24 tablet buprenorphine HCl 8 mg sublingual 8 mg sublingual BID 08/30/24 08/30/24 tablet Previous Rx's ?Medication ?Instructions ?Recorded hydrocortisone acetate 25 mg 25 mg HI TID 2 weeks #100 ea 08/30/24 rectal suppository (Anucort-HC) Allergies Allergy/AdvReac Type Severity Reaction Status Date / Time No Known Allergies Allergy Verified 08/30/24 12:37 Review of Systems 2 Const: Denies: fever(s) or chills Card: Denies: chest pain Resp: Denies: dyspnea GI: Reports: hematochezia; Denies: abdominal pain, nausea, vomiting, hematemesis or coffee ground emesis : Denies: dysuria, urinary frequency or urinary urgency Musc: Denies: neck pain or back pain Skin/Breast: Denies: rash PFSH ED 2 PFSH: Social History Smoking and tobacco/nicotine status: current every day tobacco/nicotine user Physical Exam 2 Const: COMMON NORMALS: no acute distress GENERAL APPEARANCE: cooperative and comfortable ORIENTATION/CONSCIOUSNESS: Yes awake, Yes oriented to person, Yes oriented to place and Yes oriented to time HENMT: COMMON NORMALS: normocephalic, atraumatic and hearing grossly normal bilaterally HEAD & SCALP: normocephalic and atraumatic Resp: COMMON NORMALS: normal respiratory effort, No retractions, No use of accessory muscles and clear to auscultation bilaterally AUSCULTATION: clear to auscultation bilaterally Cardio: COMMON NORMALS: regular rate, regular rhythm and No murmurs present (Cardio) RATE: regular rate RHYTHM: regular rhythm GI: COMMON NORMALS: Soft to palpation and No hepatosplenomegaly present A USCULTATION: Yes normoactive bowel sounds PALPATION: Yes Soft to palpation, No Tenderness to palpation present (GI), No Guarding due to palpation present (GI) and Yes No hepatosplenomegaly present OTHER: Rectal exam with nurse present hemorrhoidal tags noted no fissure. Scant bright red blood at the rectal verge Extremity: COMMON NORMALS: normal to inspection, capillary refill normal, no clubbing, cyanosis or edema, no calf tenderness and no pedal edema Neuro: SENSORIUM/ORIENTATION: Yes oriented to person, Yes oriented to place and Yes oriented to time Skin: COMMON NORMALS: no rashes or lesions noted GENERAL SKIN EXAM: no rashes or lesions noted Course 2 Vital Signs: Vital signs: Vital Signs Temperature 97.7 F 08/30/24 12:31 Pulse Rate 88 08/30/24 15:21 Respiratory Rate 16 08/30/24 15:21 Blood Pressure 109/80 08/30/24 15:21 Pulse Oximetry 100 08/30/24 15:21 Oxygen Delivery Me thod Room Air 08/30/24 12:31 MDM - GI Bleed Medical Decision Making Discharge patient home discharge with Anusol HC suppository set up to see general surgery for consideration of endoscopy return if has further problems she does have some mild anemia however her MCV is low suspect her anemia is chronic Lab Data 08/30/24 13:55 08/30/24 13:55 Laboratory Results WBC 11.06 10^3/uL (3.29-11.43) 08/30/24 13:55 RBC 3.71 10^6/uL (3.85-5.65) L 08/30/24 13:55 Hgb 10.40 g/dL (11.27-16.99) L 08/30/24 13:55 Hct 31.5 % (36-47) L 08/30/24 13:55 MCV 84.9 fl (85-98) L 08/30/24 13:55 MCH 28.0 pg (27-33) 08/30/24 13:55 MCHC 33.0 g/dL (30-55) 08/30/24 13:55 RDW 13.5 % (12.1-15.1) 08/30/24 13:55 Plt Count 363 10^3/cmm (157-399) 08/30/24 13:55 MPV 9.5 fL (7.4-10.4) 08/30/24 13:55 Lymph % (Auto) Not Reportable 08/30/24 13:55 [place] % (Auto) Not Reportable 08/30/24 13:55 Lymph # (Auto) Not Reportable 08/30/24 13:55 [place] # (Auto) Not Reportable 08/30/24 13:55 Total Counted 100 (0-100) 08/30/24 13:55 Atypical Lymphs % 9.0 % (0-5) H 08/30/24 13:55 Absolute Neutrophils 6.0 10^3/cmm (1.4-6.5) 08/30/24 13:55 Segmented Neutrophils 52 % 08/30/24 13:55 Band Neutrophils 2.0 % 08/30/24 13:55 Absolute Lymphocytes 4.6 10^3/cmm (1.2-3.4) H 08/30/24 13:55 Lymphocytes (Manual) 33 % 08/30/24 13:55 Monocytes (Manual) 0.0 % 08/30/24 13:55 Absolute Monocytes 0.0 10^3/cmm (0.1-0.6) L 08/30/24 13:55 Eosinophils (Manual) 4 % 08/30/24 13:55 Absolute Eosinophils 0.4 10^3/cmm (0.0-0.7) 08/30/24 13:55 Basophils (Manual) 0.0 % 08/30/24 13:55 Absolute Basophils 0.0 10^3/cmm (0.0-0.2) 08/30/24 13:55 Platelet Estimate Increased (Normal) H 08/30/24 13:55 Sodium 138 mmol/L (136-145) 08/30/24 13:55 Potassium 4.0 mmol/L (3.5-5.1) 08/30/24 13:55 Chloride 99 mmol/L (98-107) 08/30/24 13:55 Carbon Dioxide 27 mmol/L (22-29) 08/30/24 13:55 Anion Gap 16.0 (5-19) 08/30/24 13:55 BUN 10 mg/dL (6-20) 08/30/24 13:55 Creatinine 0.5 mg/dL (0.5-0.9) 08/30/24 13:55 GFR Calculation 142.1 mL/min (90-130) H 08/30/24 13:55 Glucose 94 mg/dL (65-115) 08/30/24 13:55 Calculated Osmolality 285 mOsm/kg (285-295) 08/30/24 13:55 Calcium 9.0 mg/dL (8.5-10.5) 08/30/24 13:55 Total Bilirubin 0.2 mg/dL (0.15-1.2) 08/30/24 13:55 AST 25 U/L (0-32) 08/30/24 13:55 ALT 28 U/L (0-33) 08/30/24 13:55 Alkaline Phosphatase 93 U/L (35-105) 08/30/24 13:55 Total Protein 6.9 g/dL (6.6-8.7) 08/30/24 13:55 Albumin 3.8 g/dL (3.5-5.2) 08/30/24 13:55 Globulin 3.1 g/dL (1.3-4.6) 08/30/24 13:55 Lipase 25 U/L (13-60) 08/30/24 13:55 HCG, Qual Negative (Negative) 08/30/24 13:55 Urine Color Yellow (Yellow) 08/30/24 14:06 Urine Appearance Cloudy (CLEAR) A 08/30/24 14:06 Urine pH 6.5 (5-7) 08/30/24 14:06 Ur Specific [place] 1.025 (1.005-1.030) 08/30/24 14:06 Urine Protein Negative (Negative) 08/30/24 14:06 Urine Glucose (UA) Negative (Normal) 08/30/24 14:06 Urine Ketones Negative (Negative) 08/30/24 14:06 Urine Blood Negative (Negative) 08/30/24 14:06 Urine Nitrate Negative (Negative) 08/30/24 14:06 Urine Bilirubin Negative (Negative) 08/30/24 14:06 Urine Urobilinogen 1.0 mg/dL (Negative) 08/30/24 14:06 Ur Leukocyte Esterase 2+ (Negative) A 08/30/24 14:06 Urine RBC 0-4 /hpf (0-2) H 08/30/24 14:06 Urine WBC 21-50 /hpf (0-5) H 08/30/24 14:06 Ur Squamous Epith Cells 6-10 /hpf (0-5) 08/30/24 14:06 Amorphous Sediment Not Reportable 08/30/24 14:06 Urine Bacteria 1+ /hpf (NONE) H 08/30/24 14:06 Hyaline Casts 0-4 /lpf H 08/30/24 14:06 Urine Mucus 2+ /hpf 08/30/24 14:06 Urine Yeast Trace /hpf 08/30/24 14:06 No radiology studies performed this visit Discharge Plan Discharge Patient Disposition: Home Clinical Impression: Hemorrhoids, Lower gastrointestinal hemorrhage, Anemia Condition: Stable Prescriptions: New hydrocortisone acetate [Anucort-HC] 25 mg suppository 25 mg HI TID 14 Days Qty: 100 0RF No Action buprenorphine HCl 2 mg Tablet, Sublingual 4 mg SUBLINGUAL DAILY Rx Instructions: TAKE 2 2MG WITH ONE 8MG TWICE DAILY buprenorphine HCl 8 mg Tablet, Sublingual 8 mg SUBLINGUAL BID Rx Instructions: TAKE 8MG WITH 2 2MG BID Discharge Orders: Discharge ED (Routine); Ordered 08/30/24 Ordered By: Carlos Webb Referrals: Gunner Gold MD [Primary Care Provider, Family Practice] Discharge Diet: Usual diet Discharge Activity: Increase activity as tolerated Patient Instructions: Opioid Safety, Pain Management, Patient Portal & David Instructions Activity Restrictions/Additional Instructions: Thank you for choosing [facility] for your healthcare needs today. It is very important that you follow up as instructed or that you return to the Emergency Department should you have concerns or if your condition changes or worsens in any way. You are seen in the emergency room with complaints of rectal bleeding. On exam there are some inflamed hemorrhoidal tags. The remainder of your exam is normal. Your lab work showed anemia that appears to be chronic based on the red blood cell indices. Will set you up for follow-up with general surgery for consideration of colonoscopy. Print Language: Guamanian Coding Level of Care Code ED Head Banquet Waiter/Waitress for Arlet Walker
[2024-08-30 14:01] LABS: Hematocrit 31.5 % (36-47); Hemoglobin 10.40 g/dL (11.27-16.99); Mean Corpuscular HGB Conc 33.0 g/dL (30-55); Mean Corpuscular Hemoglobin 28.0 pg (27-33); Mean Corpuscular Volume 84.9 fl (85-98); Platelet Count 363 10^3/cmm (157-399); Red Blood Count 3.71 10^6/uL (3.85-5.65); White Blood Count 11.06 10^3/uL (3.29-11.43)
[2024-08-30 14:11] VITALS: BP 124/76; PULSE 89; RESP 16; O2SAT 100
[2024-08-30 14:18] LABS: Glucose Urine UA Negative (Normal); Nitrate Urine Negative (Negative); Specific Gravity, Urine 1.025 (1.005-1.030)
[2024-08-30 14:19] LABS: Alanine Aminotransferase 28 U/L (0-33); Albumin Level 3.8 g/dL (3.5-5.2); Alkaline Phosphatase 93 U/L (35-105); Blood Urea Nitrogen 10 mg/dL (6-20); Calcium 9.0 mg/dL (8.5-10.5); Carbon Dioxide 27 mmol/L (22-29); Chloride 99 mmol/L (98-107); Creatinine Clr Calc Pharmacy 212.5542; Globulin 3.1 g/dL (1.3-4.6); Glucose 94 mg/dL (65-115); Lipase 25 U/L (13-60); Osmolality Calculated 285 mOsm/kg (285-295); Sodium 138 mmol/L (136-145); Total Protein 6.9 g/dL (6.6-8.7)
[2024-08-30 14:21] LABS: HCG, Serum Qual Negative (Negative)
[2024-08-30 14:23] LABS: Add Urine Microscopic? YES
[2024-08-30 14:23] LABS: Anion Gap 16.0 (5-19); Aspartate Amino Transferase 25 U/L (0-32); Potassium 4.0 mmol/L (3.5-5.1)
[2024-08-30 14:33] VITALS: BP 120/79; PULSE 90; RESP 16; O2SAT 97
[2024-08-30 14:54] LABS: Absolute Segmented Neutrophil 5.8 10/cmm (1.6-7.1); Atypical Lymphs 9.0 % (0-5); Band Neutrophils Absolute 0.2 10^3/cmm (0.0-1.2); Slide Review Slide Review Perform; Total Cells Counted 100 (0-100)
[2024-08-30 14:55] LABS: UA Manual Slide Review YES; UA Slide Review UA Slide Review Perf
[2024-08-30 15:21] VITALS: BP 109/80; PULSE 88; RESP 16; O2SAT 100
== END 2024-08-30 15:22 | disposition home or self-care (01) ==
PROVIDERS: Emergency Provider Family Medicine; PCP Family Medicine
DX: K64.4 Residual hemorrhoidal skin tags (principal); F17.200 Nicotine dependence, unspecified, uncomplicated; D64.9 Anemia, unspecified
CPT/HCPCS: 36415; 80053; 81001; 83690; 84703; 85007; 85025; 87086; 99283